=== PATIENT | male | born 1985 | race African-American/Black ===

== ENCOUNTER 2020-06-09 18:28 | Inpatient (IN) | payer OTHER ==
[2020-06-09] MEDS ORDERED: DEXAMETHASONE SOD PHOSPHATE 4 MG/1 ML VIAL IVPUSH ONE (21:07)
[2020-06-09 22:00] LABS: BASO % 0.2 % (0-2.0); EOS % 0.1 % (0-4.5); HEMATOCRIT 40.2 % (35.4-49); HEMOGLOBIN 13.7 GM/dL (11.7-16.9); LYMPH % 16.1 % (8-40); MCH 25.1 pg (25.7-33.7); MCHC 34.1 g/dl (32.0-35.9); MEAN CELL VOLUME 73.6 fl (80-96); MEAN PLT VOLUME 8.3 fl (7.5-11.1); MONO % 4.1 % (3.8-10.2); NEUT % 79.5 % (42.8-82.8); PLATELET COUNT 259 K/MM3 (134-434); RBC 5.47 M/mm3 (4.00-5.60); RDW 15.2 % (11.9-15.9); WHITE BLOOD COUNT 3.7 K/mm3 (4.0-10.0)
[2020-06-09 22:12] LABS: INR 1.28 (0.83-1.09); PROTHROMBIN TIME (PATIENT) 15.6 SEC (9.7-13.0)
[2020-06-09 22:14] LABS: ACTIVATED PTT 34.8 SECONDS (25.2-36.5)
[2020-06-09] MEDS ORDERED: LACTATED RINGERS SOLUTION 1000 ML INFUS.BAG IV ONE (22:16)
[2020-06-09 22:18] LABS: CHLORIDE 100 mmol/L (98-107); SODIUM 136 mmol/L (136-145)
[2020-06-09 22:20] LABS: CALCIUM 8.2 mg/dL (8.5-10.1)
[2020-06-09 22:21] LABS: ALBUMIN 3.3 g/dl (3.4-5.0); ANION GAP 6 MMOL/L (8-16); CO2 31 mmol/L (21-32); GLUCOSE,RANDOM 106 mg/dL (74-106)
[2020-06-09 22:24] LABS: CREATININE 0.8 mg/dL (0.55-1.3); SGOT/AST 110 U/L (15-37); SGPT/ALT 100 U/L (13-61)
[2020-06-09 22:25] LABS: BILIRUBIN,TOTAL 0.9 mg/dL (0.2-1); LDH 738 U/L (87-246); TOT PROT 7.4 g/dl (6.4-8.2)
[2020-06-09 22:27] LABS: ALK PHOS 67 U/L (45-117)
[2020-06-09] MEDS ORDERED: DEXAMETHASONE SOD PHOSPHATE 4 MG/1 ML VIAL ONE (22:27)
[2020-06-09 22:29] LABS: N-TERMINAL BNP 71.6 pg/ml (5-125)
[2020-06-09] MEDS ORDERED: CEFTRIAXONE 1 GM in DEXTROSE 5%-WATER - 50 ML IVPB ONE (23:50)
[2020-06-09] MEDS ORDERED: AZITHROMYCIN IVPB 500 MG in DEXTROSE 5%-WATER - 250 ML IVPB ONE (23:51)
[2020-06-10] MEDS ORDERED: CEFTRIAXONE 1 GM/50 ML BAG ONE ×2 (01:48→09:16)
[2020-06-10] MEDS ORDERED: AZITHROMYCIN IVPB 500 MG/250 ML BAG IVPB ONE ×2 (01:49→09:16)
[2020-06-10] MEDS ORDERED: ALBUTEROL SO4 HFA INHALER IH PRN (06:14)
[2020-06-10] MEDS ORDERED: ACETAMINOPHEN 325 MG TABLET (FP) PO PRN (06:15)
[2020-06-10 07:00] LABS: BASO % 0.2 % (0-2.0); HEMATOCRIT 40.6 % (35.4-49); HEMOGLOBIN 13.8 GM/dL (11.7-16.9); LYMPH % 13.1 % (8-40); MCH 25.4 pg (25.7-33.7); MCHC 33.9 g/dl (32.0-35.9); MEAN CELL VOLUME 74.9 fl (80-96); MEAN PLT VOLUME 8.5 fl (7.5-11.1); MONO % 4.3 % (3.8-10.2); NEUT % 82.4 % (42.8-82.8); PLATELET COUNT 234 K/MM3 (134-434); RBC 5.42 M/mm3 (4.00-5.60); RDW 15.3 % (11.9-15.9); WHITE BLOOD COUNT 3.3 K/mm3 (4.0-10.0)
[2020-06-10 07:01] LABS: ALBUMIN 3.2 g/dl (3.4-5.0); BLOOD UREA NITROGEN 8.7 mg/dL (7-18); CALCIUM 8.5 mg/dL (8.5-10.1); CREATININE 0.8 mg/dL (0.55-1.3)
[2020-06-10 07:02] LABS: BILIRUBIN,TOTAL 0.8 mg/dL (0.2-1); TOT PROT 7.5 g/dl (6.4-8.2)
[2020-06-10] MEDS ORDERED: ZINC SULFATE 220 MG CAPSULE (FP) ONE (09:15)
[2020-06-10] MEDS ORDERED: DEXAMETHASONE SOD PHOSPHATE 4 MG/1 ML VIAL ONE (09:15)
[2020-06-10] MEDS ORDERED: ASCORBIC ACID 500 MG TABLET (FP) ONE (09:15)
[2020-06-10] MEDS ORDERED: CHOLECALCIFEROL (VIT D3) 1,000 UNIT (25 MCG) TABLET ONE (09:16)
[2020-06-10] MEDS ORDERED: ENOXAPARIN NA (PORCINE) 40 MG/0.4 ML DISP.SYRIN SQ ONE (09:16)
[2020-06-10] MEDS: ZINC SULFATE 220 MG CAPSULE (FP) PO SCH (09:37)
[2020-06-10] MEDS: ASCORBIC ACID 500 MG TABLET (FP) PO SCH ×2 (09:37→21:34)
[2020-06-10] MEDS: DEXAMETHASONE SOD PHOSPHATE 4 MG/1 ML VIAL IVPUSH SCH (09:37)
[2020-06-10] MEDS: CHOLECALCIFEROL (VIT D3) 1,000 UNIT (25 MCG) TABLET PO SCH (09:37)
[2020-06-10] MEDS ORDERED: ENOXAPARIN NA (PORCINE) 40 MG/0.4 ML DISP.SYRIN SQ SCH (10:00)
[2020-06-10] MEDS: CEFTRIAXONE 1 GM in DEXTROSE 5%-WATER - 50 ML IVPB SCH (10:04)
[2020-06-10] MEDS: AZITHROMYCIN IVPB 500 MG/250 ML BAG IVPB SCH (10:04)
[2020-06-10] MEDS ORDERED: REMDESIVIR 200 MG in SODIUM CHLORIDE 210 ML IVPB ONE (11:45)
[2020-06-10 12:35] VITALS: BMI 44.7
[2020-06-10] MEDS: FAMOTIDINE 20 MG TABLET PO SCH (13:01)
[2020-06-10] MEDS: APIXABAN 5 MG TABLET PO SCH (21:34)
[2020-06-11 07:15] LABS: HEMATOCRIT 37.5 % (35.4-49); HEMOGLOBIN 13.1 GM/dL (11.7-16.9); MCH 25.6 pg (25.7-33.7); MCHC 34.9 g/dl (32.0-35.9); MEAN CELL VOLUME 73.4 fl (80-96); MEAN PLT VOLUME 8.4 fl (7.5-11.1); PLATELET COUNT 286 K/MM3 (134-434); RDW 15.1 % (11.9-15.9); WHITE BLOOD COUNT 3.2 K/mm3 (4.0-10.0)
[2020-06-11 07:58] LABS: BLOOD UREA NITROGEN 14.1 mg/dL (7-18); CALCIUM 8.6 mg/dL (8.5-10.1)
[2020-06-11 08:02] LABS: CREATININE 0.8 mg/dL (0.55-1.3)
[2020-06-11] MEDS ORDERED: cefTRIAXone SODIUM 1 GM VIAL ONE (08:40)
[2020-06-11] MEDS ORDERED: DEXTROSE 5%-WATER - 50 ML IVPB ONE (08:40)
[2020-06-11] MEDS: DEXAMETHASONE SOD PHOSPHATE 4 MG/1 ML VIAL IVPUSH SCH (09:04)
[2020-06-11] MEDS: CHOLECALCIFEROL (VIT D3) 1,000 UNIT (25 MCG) TABLET PO SCH (09:05)
[2020-06-11] MEDS: ZINC SULFATE 220 MG CAPSULE (FP) PO SCH (09:05)
[2020-06-11] MEDS: ASCORBIC ACID 500 MG TABLET (FP) PO SCH ×2 (09:05→21:29)
[2020-06-11] MEDS: CEFTRIAXONE 1 GM in DEXTROSE 5%-WATER - 50 ML IVPB SCH (09:05)
[2020-06-11] MEDS: FAMOTIDINE 20 MG TABLET PO SCH (09:05)
[2020-06-11] MEDS: APIXABAN 5 MG TABLET PO SCH ×2 (09:05→21:29)
[2020-06-11] MEDS: AZITHROMYCIN IVPB 500 MG/250 ML BAG IVPB SCH (10:48)
[2020-06-11] MEDS: REMDESIVIR 100 MG in SODIUM CHLORIDE 230 ML IVPB SCH (13:00)
[2020-06-12] MEDS: DEXAMETHASONE SOD PHOSPHATE 4 MG/1 ML VIAL IVPUSH SCH (10:14)
[2020-06-12] MEDS: ZINC SULFATE 220 MG CAPSULE (FP) PO SCH (10:15)
[2020-06-12] MEDS: APIXABAN 5 MG TABLET PO SCH ×2 (10:15→22:40)
[2020-06-12] MEDS: FAMOTIDINE 20 MG TABLET PO SCH (10:15)
[2020-06-12] MEDS: ASCORBIC ACID 500 MG TABLET (FP) PO SCH ×2 (10:15→22:40)
[2020-06-12] MEDS: CHOLECALCIFEROL (VIT D3) 1,000 UNIT (25 MCG) TABLET PO SCH (10:15)
[2020-06-12] MEDS: REMDESIVIR 100 MG in SODIUM CHLORIDE 230 ML IVPB SCH (12:38)
[2020-06-12] MEDS: ALBUTEROL SO4 HFA INHALER IH SCH ×2 (13:06→18:20)
[2020-06-13] MEDS: ALBUTEROL SO4 HFA INHALER IH SCH ×4 (03:11→17:18)
[2020-06-13 08:19] LABS: HEMATOCRIT 39.6 % (35.4-49); HEMOGLOBIN 13.5 GM/dL (11.7-16.9); MCH 25.5 pg (25.7-33.7); MEAN CELL VOLUME 75.1 fl (80-96); MEAN PLT VOLUME 8.4 fl (7.5-11.1); PLATELET COUNT 355 K/MM3 (134-434); RBC 5.28 M/mm3 (4.00-5.60); RDW 15.1 % (11.9-15.9); WHITE BLOOD COUNT 4.7 K/mm3 (4.0-10.0)
[2020-06-13 08:44] LABS: ALBUMIN 3.2 g/dl (3.4-5.0); CALCIUM 8.5 mg/dL (8.5-10.1)
[2020-06-13 08:48] LABS: CREATININE 0.7 mg/dL (0.55-1.3)
[2020-06-13 08:49] LABS: BILIRUBIN,TOTAL 0.7 mg/dL (0.2-1); TOT PROT 7.2 g/dl (6.4-8.2)
[2020-06-13] MEDS: CHOLECALCIFEROL (VIT D3) 1,000 UNIT (25 MCG) TABLET PO SCH (09:18)
[2020-06-13] MEDS: REMDESIVIR 100 MG in SODIUM CHLORIDE 230 ML IVPB SCH (09:18)
[2020-06-13] MEDS: APIXABAN 5 MG TABLET PO SCH ×2 (09:18→21:08)
[2020-06-13] MEDS: DEXAMETHASONE SOD PHOSPHATE 4 MG/1 ML VIAL IVPUSH SCH (09:18)
[2020-06-13] MEDS: ASCORBIC ACID 500 MG TABLET (FP) PO SCH ×2 (09:18→21:08)
[2020-06-13] MEDS: FAMOTIDINE 20 MG TABLET PO SCH (09:18)
[2020-06-13] MEDS: ZINC SULFATE 220 MG CAPSULE (FP) PO SCH (09:18)
[2020-06-14] MEDS: ALBUTEROL SO4 HFA INHALER IH SCH ×5 (00:30→23:08)
[2020-06-14] MEDS ORDERED: PT OWN MED DRAWER 7, Y5N ONE (09:37)
[2020-06-14] MEDS: APIXABAN 5 MG TABLET PO SCH ×2 (09:39→22:37)
[2020-06-14] MEDS: ASCORBIC ACID 500 MG TABLET (FP) PO SCH ×2 (09:39→22:37)
[2020-06-14] MEDS: ZINC SULFATE 220 MG CAPSULE (FP) PO SCH (09:39)
[2020-06-14] MEDS: CHOLECALCIFEROL (VIT D3) 1,000 UNIT (25 MCG) TABLET PO SCH (09:39)
[2020-06-14] MEDS: FAMOTIDINE 20 MG TABLET PO SCH (09:40)
[2020-06-14] MEDS: DEXAMETHASONE SOD PHOSPHATE 4 MG/1 ML VIAL IVPUSH SCH (09:40)
[2020-06-14] MEDS: REMDESIVIR 100 MG in SODIUM CHLORIDE 230 ML IVPB SCH (10:48)
[2020-06-15] MEDS: ALBUTEROL SO4 HFA INHALER IH SCH ×4 (05:49→23:00)
[2020-06-15] MEDS: FAMOTIDINE 20 MG TABLET PO SCH (09:27)
[2020-06-15] MEDS: APIXABAN 5 MG TABLET PO SCH ×2 (09:27→22:41)
[2020-06-15] MEDS: ASCORBIC ACID 500 MG TABLET (FP) PO SCH ×2 (09:27→22:41)
[2020-06-15] MEDS: DEXAMETHASONE SOD PHOSPHATE 4 MG/1 ML VIAL IVPUSH SCH (09:27)
[2020-06-15] MEDS: ZINC SULFATE 220 MG CAPSULE (FP) PO SCH (09:27)
[2020-06-15] MEDS: CHOLECALCIFEROL (VIT D3) 1,000 UNIT (25 MCG) TABLET PO SCH (09:28)
[2020-06-16] MEDS ORDERED: PT OWN MED DRAWER 7, Y5N ONE (00:07)
[2020-06-16] MEDS: ALBUTEROL SO4 HFA INHALER IH SCH ×2 (05:45→12:52)
[2020-06-16] MEDS: APIXABAN 5 MG TABLET PO SCH (09:57)
[2020-06-16] MEDS: CHOLECALCIFEROL (VIT D3) 1,000 UNIT (25 MCG) TABLET PO SCH (09:57)
[2020-06-16] MEDS: FAMOTIDINE 20 MG TABLET PO SCH (09:57)
[2020-06-16] MEDS: ZINC SULFATE 220 MG CAPSULE (FP) PO SCH (09:58)
[2020-06-16] MEDS: DEXAMETHASONE SOD PHOSPHATE 4 MG/1 ML VIAL IVPUSH SCH (09:59)
[2020-06-16] MEDS: ASCORBIC ACID 500 MG TABLET (FP) PO SCH (09:59)
[2020-06-16 13:07] VITALS: PULSE 79
[2020-06-16 13:55] VITALS: BP 125/76; TEMP 97.9
== END 2020-06-16 17:49 | disposition home or self-care (01) | DRG 177 ==
LOC: JER 18:28 → JERBED 21:05 → J4S 06-10 10:38
PROVIDERS: ADMIT Internal Medicine; ATTEND Internal Medicine
PROC: 8E0ZXY6 Isolation (ICD-10-PCS; 2020-06-09)
PROC: XW13325 Transfusion of Convalescent Plasma (Nonautologous) into Peripheral Vein, Percutaneous Approach, New Technology Group 5 (ICD-10-PCS; principal; 2020-06-10)
PROC: XW033E5 Introduction of Remdesivir Anti-infective into Peripheral Vein, Percutaneous Approach, New Technology Group 5 (ICD-10-PCS; 2020-06-10)
DX: U07.1 COVID-19 (principal); J12.82 Pneumonia due to coronavirus disease 2019; J96.01 Acute respiratory failure with hypoxia; Z68.41 Body mass index [BMI] 40.0-44.9, adult; R00.0 Tachycardia, unspecified; E66.01 Morbid (severe) obesity due to excess calories; G47.33 Obstructive sleep apnea (adult) (pediatric)
CPT/HCPCS: 36415; 36430; 71045-TC-FY; 80048; 80053; 82728; 83615; 83880; 84484; 85025; 85027; 85379; 85610; 85730; 86140; 86850; 86900; 86901; 87040; 87086; 87899; 93005; 93010; 94010; 94761; 99285-25; C9399; C9803; P9017; U0003

== ENCOUNTER 2023-10-11 15:08 | Emergency (ER) | payer OTHER ==
[2023-10-11 15:34] VITALS: BP 141/86; PULSE 95; RESP 17; TEMP 98.3; BMI 50.1
[2023-10-11] MEDS: LACTATED RINGERS SOLUTION 1000 ML INFUS.BAG IV ONE (16:23)
[2023-10-11 16:30] LABS: VENOUS BASE EXCESS -0.7 mmol/L (-2-2); VENOUS O2 SATURATION 69.4 % (70-80); VENOUS PCO2 42.1 mmHg (38-52); VENOUS PH 7.382 (7.310-7.410)
[2023-10-11 16:33] LABS: BASO % 1.4 % (0-2.0); EOS % 1.5 % (0-4.5); HEMOGLOBIN 14.2 GM/dL (11.7-16.9); LYMPH % 34.2 % (8-40); MCH 25.4 pg (25.7-33.7); MCHC 34.6 g/dl (32.0-35.9); MEAN CELL VOLUME 73.4 fl (80-96); MONO % 9.2 % (3.8-10.2); NEUT % 53.7 % (42.8-82.8); PLATELET COUNT 334 10^3/uL (134-434); RBC 5.59 M/mm3 (4.00-5.60); RDW 15.8 % (11.9-15.9); WHITE BLOOD COUNT 6.3 K/mm3 (4.0-10.0)
[2023-10-11 16:48] LABS: CHLORIDE 90 mmol/L (98-107); POTASSIUM 5.1 mmol/L (3.5-5.1); SODIUM 127 mmol/L (136-145)
[2023-10-11 16:50] LABS: CALCIUM 8.8 mg/dL (8.5-10.1)
[2023-10-11 16:51] LABS: ALBUMIN 3.5 g/dl (3.4-5.0); ANION GAP 10 mmol/L (4-13); CO2 27 mmol/L (21-32)
[2023-10-11 16:54] LABS: CREATININE 1.4 mg/dL (0.55-1.3); SGOT/AST 49 U/L (15-37); SGPT/ALT 57 U/L (13-61)
[2023-10-11 16:55] LABS: BILIRUBIN,TOTAL 1.2 mg/dL (0.2-1)
[2023-10-11 16:57] LABS: ALK PHOS 108 U/L (45-117)
[2023-10-11 17:46] LABS: GLUCOSE,RANDOM 497 mg/dL (74-106)
[2023-10-11 17:48] LABS: URINE APPEARANCE CLEAR; URINE BILIRUBIN NEGATIVE (NEGATIVE); URINE COLOR YELLOW; URINE GLUCOSE (UA) 3+ (NEGATIVE); URINE KETONE 3+ (NEGATIVE); URINE LEUK ESTERASE NEGATIVE (NEGATIVE); URINE NITRITE NEGATIVE (NEGATIVE); URINE PROTEIN NEGATIVE (NEGATIVE); URINE UROBILINOGEN 0.2 mg/dL (0.2-1.0)
[2023-10-11] MEDS: INSULIN REGULAR HUMAN 100 UNITS/ML *VIAL SQ ONE (18:24)
[2023-10-11] MEDS ORDERED: INSULIN REGULAR HUMAN 100 UNITS/ML *VIAL ONE (18:24)
[2023-10-11 19:03] LABS: TOT PROT 7.8 g/dl (6.4-8.2)
[2023-10-11 19:12] LABS: CHLORIDE 94 mmol/L (98-107); POTASSIUM 5.6 mmol/L (3.5-5.1); SODIUM 125 mmol/L (136-145)
[2023-10-11 19:13] LABS: CALCIUM 8.6 mg/dL (8.5-10.1)
[2023-10-11 19:14] LABS: ANION GAP 7 mmol/L (4-13); CO2 24 mmol/L (21-32)
[2023-10-11 19:17] LABS: CREATININE 1.2 mg/dL (0.55-1.3)
[2023-10-11 19:30] LABS: GLUCOSE,RANDOM 420 mg/dL (74-106)
[2023-10-11 20:41] LABS: CHLORIDE 94 mmol/L (98-107); POTASSIUM 4.3 mmol/L (3.5-5.1); SODIUM 129 mmol/L (136-145)
[2023-10-11 20:43] LABS: ANION GAP 11 mmol/L (4-13); CALCIUM 8.8 mg/dL (8.5-10.1); CO2 24 mmol/L (21-32)
[2023-10-11 20:44] LABS: BLOOD UREA NITROGEN 19.3 mg/dL (7-18)
[2023-10-11 20:47] LABS: CREATININE 1.1 mg/dL (0.55-1.3)
[2023-10-11 20:51] LABS: GLUCOSE,RANDOM 426 mg/dL (74-106)
== END 2023-10-11 21:24 | disposition home or self-care (01) ==
LOC: JER 15:08
PROC: 3E013VG Introduction of Insulin into Subcutaneous Tissue, Percutaneous Approach (ICD-10-PCS; principal; 2023-10-11)
DX: E11.69 Type 2 diabetes mellitus with other specified complication (principal); R53.1 Weakness
CPT/HCPCS: 36415; 80048; 80053; 81003; 82010; 82803; 82962; 83036; 83735; 85025; 87086; 93005; 93010; 99284-25